=== PATIENT | female | born 1990 | race African-American/Black ===

== ENCOUNTER → 2017-10-16 | Outpatient (CLI) | payer MEDICAID | LOC: OD 16:00 | PROVIDERS: ATTEND Advanced Practice Midwife | DX: R07.0 Pain in throat (principal) | CPT/HCPCS: 87070; 87880 ==

== ENCOUNTER 2018-02-26 11:47 | Outpatient (CLI) | payer MEDICAID ==
--- NOTE | 2018-02-26 12:13 | Non Stress Test Report ---
Non Stress Test Datetime Report Generated by CPN: 02/26/2018 12:13 DEMOGRAPHIC Test Number: 1 EGA NST: 37.0 INDICATION Indication for Study: Ordered by Provider Indication for Study (NST) Other: GDM MONITORING Monitor Explained: Monitor Explained; Test Explained; Patient Verbalized Understanding Time on Monitor: 02/26/2018 11:53 Time off Monitor: 02/26/2018 12:13 NST Duration: 20 NST INTERVENTIONS NST Interventions: PO Hydration Physician Notified NST: Jozef BABY A: [id number] BABY A Movement : Present Contraction Frequency : rare FHR Baseline : 135 Accelerations : 15X15 Decelerations : None Variability : Moderate 6-25bpm NST Review: Meets Criteria for Reactive NST NST Review and Verified By : D bellavance RN NST Results: Reactive NST REPORT Report Trigger: Send Report
== END 2018-02-26 12:21 | disposition home or self-care (01) ==
LOC: LC 11:47
PROVIDERS: ATTEND Obstetrics & Gynecology
PROC: 4A1HXCZ Monitoring of Products of Conception, Cardiac Rate, External Approach (ICD-10-PCS; principal; 2018-02-26)
DX: O24.419 Gestational diabetes mellitus in pregnancy, unspecified control (principal); Z3A.37 37 weeks gestation of pregnancy
CPT/HCPCS: 59025

== ENCOUNTER 2018-03-27 11:02 | Outpatient (CLI) | payer MEDICAID ==
[2018-03-27] MEDS ORDERED: ACETAMINOPHEN 325 MG TABLET PO PRN (11:29)
[2018-03-27 11:42] LABS: APPEARANCE,URINE SLIGHTLY-CLOUDY; BILIRUBIN,URINE NEGATIVE (NEGATIVE); COLOR,URINE YELLOW; GLUCOSE, URINE NEGATIVE (NEGATIVE); KETONES,URINE NEGATIVE (NEGATIVE); LEUKOCYTE ESTERASE,URINE MODERATE (NEGATIVE); NITRITE,URINE NEGATIVE (NEGATIVE); PROTEIN,URINE NEGATIVE (NEGATIVE)
[2018-03-27] MEDS ORDERED: ACETAMINOPHEN 325 MG TABLET ONE (11:51)
[2018-03-27 11:57] LABS: URINE AMPHETAMINES SCREEN NEGATIVE; URINE BARBITURATES SCREEN NEGATIVE; URINE BENZODIAZEPINES SCREEN NEGATIVE; URINE COCAINE SCREEN NEGATIVE; URINE MARIJUANA (THC) SCREEN NEGATIVE; URINE METHADONE SCREEN NEGATIVE; URINE PHENCYCLIDINE SCREEN NEGATIVE
[2018-03-27 12:01] LABS: UR PRO/CREAT RATIO RESULT 0.1 mg/mg (0.0-0.2); URINE CREATININE 212.6 mg/dL (16-327); URINE PROTEIN 12.3 mg/dL (<12)
[2018-03-27 12:33] LABS: ABSOLUTE EOSINOPHILS # (AUTO) 0.1 10^3/uL (0.0-0.6); ABSOLUTE LYMPHOCYTES (AUTO) 2.5 10^3/uL (0.5-4.7); ABSOLUTE MONOCYTES (AUTO) 0.5 10^3/uL (0.1-1.4); BASOPHILS % (AUTO) 0.5 % (0-2); EOSINOPHILS % (AUTO) 2.1 % (0-6); HEMATOCRIT 27.4 % (36.0-47.0); HEMOGLOBIN 8.8 g/dL (12.0-15.5); MEAN CORPUSCULAR HEMOGLOBIN 23.8 pg (27.0-33.4); MEAN CORPUSCULAR VOLUME 75 fl (80-97); PLATELET COUNT 438 10^3/uL (150-450); RED BLOOD COUNT 3.68 10^6/uL (3.72-5.28); RED CELL DISTRIBUTION WIDTH 16.7 % (11.5-14.0); SEGMENTED NEUTROPHILS % (AUTO) 48.4 % (42-78); TOTAL CELLS COUNTED % (AUTO) 100 %; WHITE BLOOD COUNT 6.2 10^3/uL (4.0-10.5)
[2018-03-27 12:52] LABS: ALANINE AMINOTRANSFERASE 34 U/L (9-52); ALBUMIN 3.7 g/dL (3.5-5.0); ALKALINE PHOSPHATASE 101 U/L (38-126); ANION GAP 10 (5-19); ASPARTATE AMINO TRANSFERASE 21 U/L (14-36); BILIRUBIN,DIRECT 0.2 mg/dL (0.0-0.4); BILIRUBIN,TOTAL 0.4 mg/dL (0.2-1.3); BLOOD UREA NITROGEN 11 mg/dL (7-20); CALCIUM 9.3 mg/dL (8.4-10.2); CARBON DIOXIDE 25 mmol/L (22-30); CHLORIDE 107 mmol/L (98-107); GLUCOSE 72 mg/dL (75-110); POTASSIUM 4.3 mmol/L (3.6-5.0); SODIUM 141.8 mmol/L (137-145); TOTAL PROTEIN 6.7 g/dL (6.3-8.2); URIC ACID 6.7 mg/dL (2.5-6.2)
[2018-03-27] MEDS ORDERED: NIFEDIPINE 30 MG TAB.ER.24 PO ONE (13:15)
== END 2018-03-27 13:30 | disposition home or self-care (01) ==
LOC: LC 11:02
PROVIDERS: ATTEND Student in an Organized Health Care Education/Training Program
DX: O16.5 Unspecified maternal hypertension, complicating the puerperium (principal)
CPT/HCPCS: 36415; 83615; 84156; 84550; 82570; 85025; 80053; 81001; 80307; J3490 ×2

== ENCOUNTER → 2018-03-28 | Outpatient (CLI) | payer MEDICAID ==
[2018-03-28 15:52] LABS: URINE PROTEIN 22.4 mg/dL (<12)
[2018-03-28 15:58] LABS: 24 HOUR URINE PROTEIN RESULT 623 mg/day (42-225)
== END ==
LOC: OD 13:43
PROVIDERS: ATTEND Student in an Organized Health Care Education/Training Program
DX: O16.9 Unspecified maternal hypertension, unspecified trimester (principal)
CPT/HCPCS: 36415; 84155; 84156